=== PATIENT | male | born 1945 | race Caucasian/White ===

== ENCOUNTER 2017-05-17 07:04 | Inpatient (IN) | payer MEDICARE, BC ==
[2017-05-17] MEDS ORDERED: Temazepam 15 MG Cap PO PRN (08:21)
[2017-05-17] MEDS ORDERED: Ondansetron 4 MG Tab.DIS PO PRN (08:21)
[2017-05-17] MEDS ORDERED: Acetaminophen 325 MG Tab PO PRN (08:21)
[2017-05-17] MEDS ORDERED: Magnesium Hydroxide 400 MG/5 ML Susp 30 ML Cup PO PRN (08:21)
[2017-05-17] MEDS ORDERED: Sodium Chloride 0.9% 10 ML Syringe FLUSH PRN (08:21)
[2017-05-17] MEDS: Metolazone 5 MG Tab PO SCH (09:12)
[2017-05-17] MEDS: Furosemide 40 MG/4 ML VIAL IVPUSH SCH (09:13)
[2017-05-17] MEDS ORDERED: Cyclobenzaprine 10 MG Tab PO PRN (12:12)
--- NOTE | 2017-05-17 12:48 | PCM.HP ---
H&P History of Present Illness - General Date of Service: 05/17/17 Admit Problem/Dx: Admission Diagnosis/Problem Admission Diagnosis/Problem Anasarca associated with disorder of kidney Source of Information: Patient History Limitations: Reports: No Limitations - History of Present Illness Initial Comments - Free Text/Narative: Patient admitted direct admit due to anasarca. Has had about a 50# weight gain of fluid over the last several months. Now feeling more short of breath. Swelling has now increased from his legs up through his abdomen. He has noted that his legs are weeping more, uncomfortable. Was seen by Dr. Meyers yesterday who felt he would need to be admitted for IV diuresis as multiple oral medications and changes has not helped. Patient has had ongoing issues with his blood pressure as well. Is on several different meds for this and has many adjustments. Patient denies chest pain. No recent fevers. Onset of Symptoms: Reports: Gradual Duration of Symptoms: Reports: Week(s): Location: Reports: Generalized - Related Data Allergies/Adverse Reactions: Allergies Allergy/AdvReac Type Severity Reaction Status Date / Time No Known Allergies Allergy Verified 05/17/17 07:27 Home Medications: Home Meds Aspirin [Halfprin] 81 mg PO DAILY 05/18/15 [History] Cyclobenzaprine [Flexeril] 10 mg PO TID PRN 05/18/15 [History] Insulin Isophane NPH, Human [HumuLIN N] 45 unit SUBCUT BIDMEALS 05/18/15 [ History] Meloxicam 15 mg PO WITHBREAKFAST 05/18/15 [History] Multivitamin [Tab A Shantell] 1 each PO DAILY 05/18/15 [History] Polyethylene Glycol 3350 [MiraLAX] 17 gm PO DAILY 05/18/15 [History] Rosuvastatin [Crestor] 20 mg PO DAILY 05/18/15 [History] Tamsulosin [Flomax] 0.4 mg PO DAILY 05/18/15 [History] Carvedilol [Coreg] 3.125 mg PO BIDM #60 tablet 05/21/15 [Rx] Isosorbide Mononitrate [Imdur] 60 mg PO DAILY 05/17/17 [History] Losartan Potassium 100 mg PO DAILY 05/17/17 [History] Torsemide 40 mg PO BID 05/17/17 [History] hydrALAZINE HCl [Hydralazine HCl] 25 mg PO BID 05/17/17 [History] Past Medical History HEENT History: Reports: Allergic Rhinitis Cardiovascular History: Reports: Heart Failure, High Cholesterol, Hypertension Respiratory History: Reports: SOB Genitourinary History: Reports: BPH Musculoskeletal History: Reports: Back Pain, Chronic Neurological History: Reports: Neuropathy, Diabetic Endocrine/Metabolic History: Reports: Diabetes, Type II - Past Surgical History Cardiovascular Surgical History: Reports: Other (See Below) Other Cardiovascular Surgeries/Procedures: CABG 5 in 2000 Social & Family History - Tobacco Use Smoking Status *Q: Former Smoker Used Tobacco, but Quit: Yes Month Tobacco Last Used: 32 y.o - Caffeine Use Caffeine Use: Reports: Coffee - Recreational Drug Use Recreational Drug Use: No H&P Review of Systems - Review of Systems: Review Of Systems: See Below General: Reports: Weakness. Denies: Fever, Chills, Malaise HEENT: Reports: No Symptoms Pulmonary: Reports: Shortness of Breath, Wheezing. Denies: Cough Cardiovascular: Reports: Edema. Denies: Chest Pain, Lightheadedness Gastrointestinal: Denies: Abdominal Pain, Black Stool, Bloody Stool, Nausea, Vomiting Genitourinary: Reports: No Symptoms Musculoskeletal: Reports: Leg Pain Skin: Reports: Erythema Psychiatric: Reports: No Symptoms Neurological: Reports: No Symptoms Exam - Exam Exam: See Below - Vital Signs Vital Signs: Last Vital Signs Temp 97.7 F 05/17/17 11:33 Pulse 74 05/17/17 11:33 Resp 16 05/17/17 11:33 BP 150/78 H 05/17/17 11:33 Pulse Ox 94 L 05/17/17 11:33 Weight: 319 lb - Exam General: Alert, Oriented HEENT: EACs Clear, Normal Nasal Septum, Posterior Pharynx Clear Neck: Supple Lungs: Decreased Breath Sounds, Wheezing Cardiovascular: Irregular Rhythm GI/Abdominal Exam: Normal Bowel Sounds, Soft, Non-Tender Extremities: Pedal Edema (4+ edema, legs weeping, red) Skin: Warm, Other (multiple open weeping areas on his legs) Neuro Extensive - Mental Status: Alert, Oriented x3 Psychiatric: Alert, Normal Affect, Normal Mood - Patient Data Lab Results Last 24 hrs: Laboratory Results - last 24 hr 05/17/17 05/17/17 05/17/17 Range/Units 09:10 09:10 11:19 WBC 6.3 (5.0-10.0) 10^3/uL RBC 4.57 (4.50-6.00) 10^6/uL Hgb 13.5 L (14.0-18.0) g/dL Hct 42.9 (40.0-54.0) % MCV 93.9 (82.0-94.0) fL MCH 29.5 (27.0-32.0) pg MCHC 31.5 L (33.0-38.0) g/dL RDW Coeff of Ashley 17.6 H (11.0-15.0) % Plt Count 120 L (150-400) 10^3/uL Neut % (Auto) 80.1 (35-85) % Lymph % (Auto) 8.1 L (10-55) % [place] % (Auto) 9.6 (0-16) % Eos % (Auto) 1.9 (0-5) % Baso % (Auto) 0.3 (0-3) % Neut # (Auto) 5.03 (1.80-7.00) 10^3/uL Lymph # (Auto) 0.51 L (1.00-4.80) 10^3/uL [place] # (Auto) 0.60 (0.00-0.80) 10^3/uL Eos # (Auto) 0.12 (0.00-0.45) 10^3/uL Baso # (Auto) 0.02 10^3/uL Sodium 143 (136-145) mEq/L Potassium 4.3 (3.5-5.0) mEq/L Chloride 103 (98-106) mEq/L Carbon Dioxide 35 H (21-32) mmol/L BUN 34 H (7-18) mg/dL Creatinine 2.0 H (0.7-1.3) mg/dL Est Cr Clr Drug Dosing 37.13 mL/min Estimated GFR (MDRD) 33 L (>=60) mL/min Glucose 120 H (75-99) mg/dL POC Glucose 165 H (75-105) mg/dl Calcium 9.0 (8.4-10.1) mg/dL Total Bilirubin 2.8 H (0.0-1.0) mg/dL AST 17 (15-37) U/L ALT 21 (12-78) U/L Alkaline Phosphatase 88 (46-116) U/L NT-Pro-B Natriuret Pep 3619 H (0-1000) pg/mL Total Protein 7.5 (6.4-8.2) g/dL Albumin 3.7 (3.4-5.0) g/dL Result Diagrams: 05/17/17 09:10 05/17/17 09:10 EKG INTERPRETATION Rhythm: A-Fib *Q Meaningful Use (ADM) - VTE *Q VTE Criteria *Q: - Stroke *Q Stroke Criteria *Q: - AMI *Q AMI Criteria *Q: - Problem List (1) Anasarca SNOMED Code(s): 381289688, 616940011 ICD Code: R60.1 - GENERALIZED EDEMA Status: Acute Priority: High Current Visit: Yes (2) CHF exacerbation SNOMED Code(s): 47780211 ICD Code: I50.9 - HEART FAILURE, UNSPECIFIED Status: Acute Priority: High Current Visit: No Qualifiers: Congestive heart failure type: systolic Qualified Code(s): I50.23 - Acute on chronic systolic (congestive) heart failure Problem List Initiated/Reviewed/Updated: Yes Orders Last 24hrs: Active Orders 24 hr Category Date Time Status Patient Status [ADT] Routine ADT 05/17/17 08:21 Active Cardiac Monitoring [RC] 0800,1999 Care 05/17/17 08:24 Active Height and Weight [RC] 0600 Care 05/17/17 08:21 Active Oxygen Therapy [RC] .PRN Care 05/17/17 08:21 Active Up to Chair [RC] .PRN Care 05/17/17 08:21 Active Vital Signs [RC] 0000,0400,0800,1200,1600,1999 Care 05/17/17 08:21 Active Consult to Physical Therapy [PT Evaluation and Cons 05/17/17 08:42 Active Treatment] [CONS] Routine 2 Gram Sodium Diet [DIET] Diet 05/17/17 Breakfast Active Chest 2V [CR] Stat Exams 05/17/17 08:21 Taken Chest wo Cont [CT] Routine Exams 05/17/17 12:33 Ordered BASIC METABOLIC PANEL,BMP [CHEM] AM Lab 05/18/17 05:11 Ordered CBC WITH AUTO DIFF [HEME] AM Lab 05/18/17 05:11 Ordered Acetaminophen [Tylenol] Med 05/17/17 08:21 Active 650 mg PO Q4H PRN Aspirin [Halfprin] Med 05/18/17 08:00 Active 81 mg PO DAILY Carvedilol [Coreg] Med 05/17/17 17:30 Active 3.125 mg PO BIDM Cyclobenzaprine [Flexeril] Med 05/17/17 12:12 Active 10 mg PO TID PRN Furosemide [Lasix] Med 05/17/17 08:30 Active 40 mg IVPUSH Q24H Insulin Detemir [Levemir] Med 05/17/17 20:00 Active 45 unit SUBCUT BID Isosorbide Mononitrate [Imdur] Med 05/17/17 12:15 Active 60 mg PO DAILY Losartan [Cozaar] Med 05/17/17 12:15 Active 100 mg PO DAILY Magnesium Hydroxide [Milk of Magnesia] Med 05/17/17 08:21 Active 30 ml PO Q12H PRN Meloxicam [Mobic] Med 05/18/17 08:00 Active 15 mg PO WITHBREAKFAST Metolazone [Zaroxolyn] Med 05/17/17 08:30 Active 5 mg PO MOWEFR Multivitamins [Tab-A-Shantell] Med 05/18/17 08:00 Active 1 tab PO DAILY Ondansetron [Zofran ODT] Med 05/17/17 08:21 Active 4 mg PO Q4H PRN Polyethylene Glycol 3350 [MiraLAX] Med 05/18/17 08:00 Active 17 gm PO DAILY Simvastatin [Zocor] Med 05/17/17 20:00 Active 80 mg PO BEDTIME Sodium Chloride 0.9% [Saline Flush] Med 05/17/17 08:21 Active 10 ml FLUSH ASDIRECTED PRN Tamsulosin [Flomax] Med 05/18/17 08:00 Active 0.4 mg PO DAILY Temazepam [Restoril] Med 05/17/17 08:21 Active 15 mg PO BEDTIME PRN hydrALAZINE [Apresoline] Med 05/17/17 20:00 Active 25 mg PO BID Saline Lock Insert [OM.PC] Routine Oth 05/17/17 08:21 Ordered Resuscitation Status Routine Resus Stat 05/17/17 08:21 Ordered Medication Orders Acetaminophen (Tylenol) 650 mg PO Q4H PRN PRN Reason: Pain (Mild 1-3)/fever Aspirin (Halfprin) 81 mg PO DAILY [facility] Carvedilol (Coreg) 3.125 mg PO BIDM [facility] Cyclobenzaprine HCl (Flexeril) 10 mg PO TID PRN PRN Reason: Spasms Furosemide (Lasix) 40 mg IVPUSH Q24H [facility] Last Admin: 05/17/17 09:13 Dose: 40 mg Hydralazine HCl (Apresoline) 25 mg PO BID [facility] Insulin Detemir (Levemir) 45 unit SUBCUT BID [facility] Isosorbide Mononitrate (Imdur) 60 mg PO DAILY [facility] Losartan Potassium (Cozaar) 100 mg PO DAILY [facility] Magnesium Hydroxide (Milk Of Magnesia) 30 ml PO Q12H PRN PRN Reason: Constipation Meloxicam (Mobic) 15 mg PO WITHBREAKFAST [facility] Metolazone (Zaroxolyn) 5 mg PO MOWEFR [facility] Last Admin: 05/17/17 09:12 Dose: 5 mg Multivitamins/Minerals/Vitamin C (Tab-A-Shantell) 1 tab PO DAILY [facility] Ondansetron HCl (Zofran Odt) 4 mg PO Q4H PRN PRN Reason: nausea, able to take PO Polyethylene Glycol (Miralax) 17 gm PO DAILY [facility] Simvastatin (Zocor) 80 mg PO BEDTIME [facility] Sodium Chloride (Saline Flush) 10 ml FLUSH ASDIRECTED PRN PRN Reason: Keep Vein Open Tamsulosin HCl (Flomax) 0.4 mg PO DAILY [facility] Temazepam (Restoril) 15 mg PO BEDTIME PRN PRN Reason: Sleep Assessment/Plan Comment:: Labs ordered. Echocardiogram ordered. CXR. IV Lasix with metolazone prior. Will have PT evaluate for legs/weeping.
[2017-05-17] MEDS: Losartan 100 MG Tab PO SCH (12:55)
[2017-05-17] MEDS: Isosorbide Mononitrate 30 MG Tab.ER PO SCH (12:55)
[2017-05-17] MEDS: Enoxaparin 40 MG/0.4 ML Syringe SUBCUT SCH ×2 (12:56→13:00)
[2017-05-17] MEDS: Carvedilol 3.125 MG Tab PO SCH (17:18)
[2017-05-17] MEDS ORDERED: Insulin Detemir 100 Units/ML 3 ML Pen ONE (17:24)
[2017-05-17] MEDS: Simvastatin 40 MG Tab PO SCH (20:31)
[2017-05-17] MEDS: Insulin Detemir 100 Units/ML 3 ML Pen SUBCUT SCH (20:32)
[2017-05-17] MEDS: hydrALAZINE 25 MG Tab PO SCH (20:32)
[2017-05-18] MEDS: Losartan 100 MG Tab PO SCH (08:04)
[2017-05-18] MEDS: Carvedilol 3.125 MG Tab PO SCH ×2 (08:04→17:29)
[2017-05-18] MEDS: Aspirin 81 MG Tab.EC PO SCH (08:05)
[2017-05-18] MEDS: hydrALAZINE 25 MG Tab PO SCH ×2 (08:05→19:33)
[2017-05-18] MEDS: Tamsulosin 0.4 MG Cap.ER PO SCH (08:05)
[2017-05-18] MEDS: Isosorbide Mononitrate 30 MG Tab.ER PO SCH (08:05)
[2017-05-18] MEDS: Polyethylene Glycol 3350 Powder 17 GM Packet PO SCH (08:05)
[2017-05-18] MEDS: Meloxicam 7.5 MG Tab PO SCH (08:05)
[2017-05-18] MEDS: Multivitamin Tab PO SCH (08:05)
[2017-05-18] MEDS: Furosemide 40 MG/4 ML VIAL IVPUSH SCH ×2 (08:08→14:00)
[2017-05-18] MEDS: Insulin Detemir 100 Units/ML 3 ML Pen SUBCUT SCH ×2 (08:11→19:35)
--- NOTE | 2017-05-18 10:59 | PCM.PN ---
- General Info Date of Service: 05/18/17 Admission Dx/Problem (Free Text): Admission Diagnosis/Problem Admission Diagnosis/Problem Anasarca associated with disorder of kidney Functional Status: Reports: Pain Controlled, Tolerating Diet, Ambulating - Review of Systems General: Reports: Fatigue. Denies: Fever, Weakness HEENT: Reports: No Symptoms Pulmonary: Reports: Shortness of Breath. Denies: Cough, Wheezing Cardiovascular: Reports: Edema. Denies: Chest Pain, Lightheadedness Gastrointestinal: Denies: Abdominal Pain, Nausea, Vomiting Genitourinary: Reports: No Symptoms Musculoskeletal: Reports: Leg Pain Skin: Reports: Other (UNNA boots on now due to fluid overload and open areas weeping) Neurological: Reports: No Symptoms Psychiatric: Reports: No Symptoms - Patient Data Vitals - Most Recent: Last Vital Signs Temp 96.3 F 05/18/17 07:56 Pulse 70 05/18/17 08:04 Resp 16 05/18/17 07:56 BP 148/85 H 05/18/17 08:05 Pulse Ox 93 L 05/18/17 07:56 Weight - Most Recent: 315 lb 3.2 oz I&O - Last 24 Hours: Intake & Output 05/17/17 05/18/17 05/18/17 22:59 06:59 14:59 Intake Total 900 745 200 Output Total 1480 2280 Balance -580 -1535 200 Lab Results Last 24 Hours: Laboratory Results - last 24 hr 05/17/17 05/17/17 05/17/17 Range/Units 11:19 17:06 20:33 WBC (5.0-10.0) 10^3/uL RBC (4.50-6.00) 10^6/uL Hgb (14.0-18.0) g/dL Hct (40.0-54.0) % MCV (82.0-94.0) fL MCH (27.0-32.0) pg MCHC (33.0-38.0) g/dL RDW Coeff of Ashley (11.0-15.0) % Plt Count (150-400) 10^3/uL Neut % (Auto) (35-85) % Lymph % (Auto) (10-55) % [place] % (Auto) (0-16) % Eos % (Auto) (0-5) % Baso % (Auto) (0-3) % Neut # (Auto) (1.80-7.00) 10^3/uL Lymph # (Auto) (1.00-4.80) 10^3/uL [place] # (Auto) (0.00-0.80) 10^3/uL Eos # (Auto) (0.00-0.45) 10^3/uL Baso # (Auto) 10^3/uL Sodium (136-145) mEq/L Potassium (3.5-5.0) mEq/L Chloride (98-106) mEq/L Carbon Dioxide (21-32) mmol/L BUN (7-18) mg/dL Creatinine (0.7-1.3) mg/dL Est Cr Clr Drug Dosing mL/min Estimated GFR (MDRD) (>=60) mL/min Glucose (75-99) mg/dL POC Glucose 165 H 208 H 274 H (75-105) mg/dl Calcium (8.4-10.1) mg/dL 05/18/17 05/18/17 05/18/17 Range/Units 06:50 06:50 07:45 WBC 5.7 (5.0-10.0) 10^3/uL RBC 4.31 L (4.50-6.00) 10^6/uL Hgb 12.7 L (14.0-18.0) g/dL Hct 40.4 (40.0-54.0) % MCV 93.7 (82.0-94.0) fL MCH 29.5 (27.0-32.0) pg MCHC 31.4 L (33.0-38.0) g/dL RDW Coeff of [place] 17.7 H (11.0-15.0) % Plt Count 128 L (150-400) 10^3/uL Neut % (Auto) 68.2 (35-85) % Lymph % (Auto) 14.6 (10-55) % [place] % (Auto) 14.2 (0-16) % Eos % (Auto) 2.5 (0-5) % Baso % (Auto) 0.5 (0-3) % Neut # (Auto) 3.89 (1.80-7.00) 10^3/uL Lymph # (Auto) 0.83 L (1.00-4.80) 10^3/uL [place] # (Auto) 0.81 H (0.00-0.80) 10^3/uL Eos # (Auto) 0.14 (0.00-0.45) 10^3/uL Baso # (Auto) 0.03 10^3/uL Sodium 143 (136-145) mEq/L Potassium 3.6 (3.5-5.0) mEq/L Chloride 103 (98-106) mEq/L Carbon Dioxide 35 H (21-32) mmol/L BUN 34 H (7-18) mg/dL Creatinine 1.9 H (0.7-1.3) mg/dL Est Cr Clr Drug Dosing 39.08 mL/min Estimated GFR (MDRD) 35 L (>=60) mL/min Glucose 169 H D (75-99) mg/dL POC Glucose 158 H (75-105) mg/dl Calcium 8.6 (8.4-10.1) mg/dL Med Orders - Current: Current Medications Acetaminophen (Tylenol) 650 mg PO Q4H PRN PRN Reason: Pain (Mild 1-3)/fever Aspirin (Halfprin) 81 mg PO DAILY [facility] Last Admin: 05/18/17 08:05 Dose: 81 mg Carvedilol (Coreg) 3.125 mg PO BIDM [facility] Last Admin: 05/18/17 08:04 Dose: 3.125 mg Cyclobenzaprine HCl (Flexeril) 10 mg PO TID PRN PRN Reason: Spasms Furosemide (Lasix) 40 mg IVPUSH DAILY@0800,1400 [facility] Hydralazine HCl (Apresoline) 25 mg PO BID [facility] Last Admin: 05/18/17 08:05 Dose: 25 mg Insulin Detemir (Levemir) 45 unit SUBCUT BID [facility] Last Admin: 05/18/17 08:11 Dose: 45 units Isosorbide Mononitrate (Imdur) 60 mg PO DAILY [facility] Last Admin: 05/18/17 08:05 Dose: 60 mg Losartan Potassium (Cozaar) 100 mg PO DAILY [facility] Last Admin: 05/18/17 08:04 Dose: 100 mg Magnesium Hydroxide (Milk Of Magnesia) 30 ml PO Q12H PRN PRN Reason: Constipation Meloxicam (Mobic) 15 mg PO WITHBREAKFAST [facility] Last Admin: 05/18/17 08:05 Dose: 15 mg Metolazone (Zaroxolyn) 5 mg PO MOWEFR [facility] Last Admin: 05/17/17 09:12 Dose: 5 mg Multivitamins/Minerals/Vitamin C (Tab-A-Shantell) 1 tab PO DAILY [facility] Last Admin: 05/18/17 08:05 Dose: 1 tab Non-Formulary Medication (Nf Drug) 1 each PO DAILY [facility] Ondansetron HCl (Zofran Odt) 4 mg PO Q4H PRN PRN Reason: nausea, able to take PO Polyethylene Glycol (Miralax) 17 gm PO DAILY [facility] Last Admin: 05/18/17 08:05 Dose: 17 gm Simvastatin (Zocor) 80 mg PO BEDTIME [facility] Last Admin: 05/17/17 20:31 Dose: 80 mg Sodium Chloride (Saline Flush) 10 ml FLUSH ASDIRECTED PRN PRN Reason: Keep Vein Open Tamsulosin HCl (Flomax) 0.4 mg PO DAILY [facility] Last Admin: 05/18/17 08:05 Dose: 0.4 mg Temazepam (Restoril) 15 mg PO BEDTIME PRN PRN Reason: Sleep Discontinued Medications Enoxaparin Sodium (Lovenox) 40 mg SUBCUT Q24H [facility] Last Admin: 05/17/17 13:00 Dose: 40 mg Furosemide (Lasix) 40 mg IVPUSH Q24H [facility] Last Admin: 05/18/17 08:08 Dose: 40 mg Furosemide (Lasix) 40 mg IVPUSH BID [facility] Insulin Detemir (Levemir) Confirm Administered Dose 300 unit .ROUTE .STK-MED ONE Stop: 05/17/17 17:25 Last Admin: 05/17/17 17:19 Dose: Not Given - Exam General: Alert, Oriented HEENT: Mucous Membr. Moist/[place] Neck: Supple Lungs: Decreased Breath Sounds Cardiovascular: Irregular Rhythm GI/Abdominal Exam: Normal Bowel Sounds, Soft, Non-Tender Extremities: Pedal Edema (Significant edema yet in his lower extremities. UNNA boots intact. Discomfort with palpation. ) Neurological: No New Focal Deficit Psy/Mental Status: Alert, Normal Affect, Normal Mood - Problem List & Annotations (1) Anasarca SNOMED Code(s): 319149024, 093834697 Code(s): R60.1 - GENERALIZED EDEMA Status: Acute Priority: High Current Visit: Yes (2) CHF exacerbation SNOMED Code(s): 72434782 Code(s): I50.9 - HEART FAILURE, UNSPECIFIED Status: Acute Priority: High Current Visit: No Qualifiers: Congestive heart failure type: systolic Qualified Code(s): I50.23 - Acute on chronic systolic (congestive) heart failure - Problem List Review Problem List Initiated/Reviewed/Updated: Yes - My Orders Last 24 Hours: My Active Orders 05/17/17 12:12 Cyclobenzaprine [Flexeril] 10 mg PO TID PRN 05/17/17 12:15 Isosorbide Mononitrate [Imdur] 60 mg PO DAILY Losartan [Cozaar] 100 mg PO DAILY 05/17/17 12:33 Chest wo Cont [CT] Routine 05/17/17 17:30 Carvedilol [Coreg] 3.125 mg PO BIDM Non-Formulary Medication [NF Drug] 1 each PO DAILY 05/17/17 20:00 Insulin Detemir [Levemir] 45 unit SUBCUT BID Simvastatin [Zocor] 80 mg PO BEDTIME hydrALAZINE [Apresoline] 25 mg PO BID 05/18/17 08:00 Aspirin [Halfprin] 81 mg PO DAILY Meloxicam [Mobic] 15 mg PO WITHBREAKFAST Multivitamins [Tab-A-Shantell] 1 tab PO DAILY Polyethylene Glycol 3350 [MiraLAX] 17 gm PO DAILY Tamsulosin [Flomax] 0.4 mg PO DAILY 05/18/17 14:00 Furosemide [Lasix] 40 mg IVPUSH DAILY@0800,1400 05/19/17 05:11 BMP [BASIC METABOLIC PANEL,BMP] [CHEM] DAILY 05/20/17 05:11 BMP [BASIC METABOLIC PANEL,BMP] [CHEM] DAILY 05/21/17 05:11 BMP [BASIC METABOLIC PANEL,BMP] [CHEM] DAILY - Assessment Assessment:: Anasarca Acute on chronic systolic CHF - Plan Plan:: Labs ordered. Echocardiogram ordered. CXR. IV Lasix with metolazone prior. Will have PT evaluate for legs/weeping. 05-18-2017 Patient states feeling somewhat less short of breath today. Is up to bathroom unassisted and tolerates well. Sats remain about 92% on room air. Continues to have 4+ edema in lower extremities. UNNA boots intact. Lung sounds note to have better air movement and less wheezing but still diminished. He is down 4# today. States did have good diuresis after the Lasix yesterday but slowed down within hours after. CT scan was done yesterday afternoon of chest and showed pleural effusions, no lesions. Awaiting echocardiogram. New onset atrial fib noted by EKG so Xarelto started yesterday. Will adjust Xarelto dose due to renal function to 15 mg. Creatinine stable at 1.9. Will increase Lasix to BID this weekend. Continue monitoring blood sugars, blood pressures and weights. Reevalute in am.
[2017-05-18] MEDS: RIVAROXABAN 15 MG PO SCH (17:29)
[2017-05-18] MEDS: Simvastatin 40 MG Tab PO SCH (19:33)
[2017-05-18] MEDS ORDERED: Furosemide 40 MG/4 ML VIAL IVPUSH SCH (20:00)
[2017-05-19] MEDS: Furosemide 40 MG/4 ML VIAL IVPUSH SCH ×2 (07:49→13:49)
[2017-05-19] MEDS: hydrALAZINE 25 MG Tab PO SCH ×2 (07:54→19:26)
[2017-05-19] MEDS: Carvedilol 3.125 MG Tab PO SCH ×2 (07:54→17:12)
[2017-05-19] MEDS: Aspirin 81 MG Tab.EC PO SCH (07:55)
[2017-05-19] MEDS: Tamsulosin 0.4 MG Cap.ER PO SCH (07:55)
[2017-05-19] MEDS: Isosorbide Mononitrate 30 MG Tab.ER PO SCH (07:55)
[2017-05-19] MEDS: Losartan 100 MG Tab PO SCH (07:55)
[2017-05-19] MEDS: Multivitamin Tab PO SCH (07:56)
[2017-05-19] MEDS: Meloxicam 7.5 MG Tab PO SCH (07:56)
[2017-05-19] MEDS: Polyethylene Glycol 3350 Powder 17 GM Packet PO SCH (07:56)
[2017-05-19] MEDS: Insulin Detemir 100 Units/ML 3 ML Pen SUBCUT SCH ×2 (07:58→19:30)
--- NOTE | 2017-05-19 11:05 | PCM.PN ---
- General Info Date of Service: 05/19/17 Admission Dx/Problem (Free Text): Admission Diagnosis/Problem Admission Diagnosis/Problem Anasarca associated with disorder of kidney Functional Status: Reports: Pain Controlled, Tolerating Diet, Ambulating - Review of Systems General: Denies: Fever, Weakness, Fatigue HEENT: Reports: No Symptoms Pulmonary: Reports: Shortness of Breath. Denies: Cough, Wheezing Cardiovascular: Reports: Edema. Denies: Chest Pain, Lightheadedness Gastrointestinal: Denies: Abdominal Pain, Nausea, Vomiting Genitourinary: Reports: No Symptoms Musculoskeletal: Reports: No Symptoms Skin: Reports: No Symptoms Neurological: Reports: No Symptoms - Patient Data Vitals - Most Recent: Last Vital Signs Temp 96.7 F 05/19/17 07:55 Pulse 67 05/19/17 07:55 Resp 18 05/19/17 07:55 BP 149/85 H 05/19/17 07:55 Pulse Ox 93 L 05/19/17 07:55 Weight - Most Recent: 310 lb I&O - Last 24 Hours: Intake & Output 05/18/17 05/19/17 05/19/17 22:59 06:59 14:59 Intake Total 560 300 Output Total 1050 1020 400 Balance -490 -720 -400 Lab Results Last 24 Hours: Laboratory Results - last 24 hr 05/18/17 05/18/17 05/18/17 Range/Units 11:30 17:15 20:22 Sodium (136-145) mEq/L Potassium (3.5-5.0) mEq/L Chloride (98-106) mEq/L Carbon Dioxide (21-32) mmol/L BUN (7-18) mg/dL Creatinine (0.7-1.3) mg/dL Est Cr Clr Drug Dosing mL/min Estimated GFR (MDRD) (>=60) mL/min Glucose (75-99) mg/dL POC Glucose 283 H 218 H 256 H (75-105) mg/dl Calcium (8.4-10.1) mg/dL 05/19/17 Range/Units 07:00 Sodium 145 (136-145) mEq/L Potassium 3.5 (3.5-5.0) mEq/L Chloride 104 (98-106) mEq/L Carbon Dioxide 37 H (21-32) mmol/L BUN 33 H (7-18) mg/dL Creatinine 1.9 H (0.7-1.3) mg/dL Est Cr Clr Drug Dosing 39.08 mL/min Estimated GFR (MDRD) 35 L (>=60) mL/min Glucose 85 D (75-99) mg/dL POC Glucose (75-105) mg/dl Calcium 9.3 (8.4-10.1) mg/dL Med Orders - Current: Current Medications Acetaminophen (Tylenol) 650 mg PO Q4H PRN PRN Reason: Pain (Mild 1-3)/fever Aspirin (Halfprin) 81 mg PO DAILY [facility] Last Admin: 05/19/17 07:55 Dose: 81 mg Carvedilol (Coreg) 3.125 mg PO BIDM [facility] Last Admin: 05/19/17 07:54 Dose: 3.125 mg Cyclobenzaprine HCl (Flexeril) 10 mg PO TID PRN PRN Reason: Spasms Furosemide (Lasix) 40 mg IVPUSH DAILY@0800,1400 [facility] Last Admin: 05/19/17 07:49 Dose: 40 mg Hydralazine HCl (Apresoline) 25 mg PO BID [facility] Last Admin: 05/19/17 07:54 Dose: 25 mg Insulin Detemir (Levemir) 45 unit SUBCUT BID [facility] Last Admin: 05/19/17 07:58 Dose: 45 units Isosorbide Mononitrate (Imdur) 60 mg PO DAILY [facility] Last Admin: 05/19/17 07:55 Dose: 60 mg Losartan Potassium (Cozaar) 100 mg PO DAILY [facility] Last Admin: 05/19/17 07:55 Dose: 100 mg Magnesium Hydroxide (Milk Of Magnesia) 30 ml PO Q12H PRN PRN Reason: Constipation Meloxicam (Mobic) 15 mg PO WITHBREAKFAST [facility] Last Admin: 05/19/17 07:56 Dose: 15 mg Metolazone (Zaroxolyn) 5 mg PO MOWEFR [facility] Last Admin: 05/17/17 09:12 Dose: 5 mg Multivitamins/Minerals/Vitamin C (Tab-A-Shantell) 1 tab PO DAILY [facility] Last Admin: 05/19/17 07:56 Dose: 1 tab Rivaroxaban (Xarelto () 15mgOwn Med) 1 each PO DAILY@1800 [facility] Last Admin: 09/09/17 17:29 Dose: 1 each Ondansetron HCl (Zofran Odt) 4 mg PO Q4H PRN PRN Reason: nausea, able to take PO Polyethylene Glycol (Miralax) 17 gm PO DAILY [facility] Last Admin: 05/19/17 07:56 Dose: 17 gm Simvastatin (Zocor) 80 mg PO BEDTIME [facility] Last Admin: 05/18/17 19:33 Dose: 80 mg Sodium Chloride (Saline Flush) 10 ml FLUSH ASDIRECTED PRN PRN Reason: Keep Vein Open Tamsulosin HCl (Flomax) 0.4 mg PO DAILY [facility] Last Admin: 05/19/17 07:55 Dose: 0.4 mg Temazepam (Restoril) 15 mg PO BEDTIME PRN PRN Reason: Sleep Discontinued Medications Enoxaparin Sodium (Lovenox) 40 mg SUBCUT Q24H [facility] Last Admin: 05/17/17 13:00 Dose: 40 mg Furosemide (Lasix) 40 mg IVPUSH Q24H [facility] Last Admin: 05/18/17 08:08 Dose: 40 mg Furosemide (Lasix) 40 mg IVPUSH BID [facility] Insulin Detemir (Levemir) Confirm Administered Dose 300 unit .ROUTE .STK-MED ONE Stop: 05/17/17 17:25 Last Admin: 05/17/17 17:19 Dose: Not Given - Exam General: Alert, Oriented HEENT: Mucous Membr. Moist/[place] Neck: Supple Lungs: Decreased Breath Sounds Cardiovascular: Irregular Rhythm GI/Abdominal Exam: Normal Bowel Sounds, Soft, Non-Tender Extremities: Normal Inspection, Pedal Edema (3-4+ edema, UNNA boots intact. ) - Problem List & Annotations (1) Anasarca SNOMED Code(s): 644127495, 560201528 Code(s): R60.1 - GENERALIZED EDEMA Status: Acute Priority: High Current Visit: Yes (2) CHF exacerbation SNOMED Code(s): 82517637 Code(s): I50.9 - HEART FAILURE, UNSPECIFIED Status: Acute Priority: High Current Visit: No Qualifiers: Congestive heart failure type: systolic Qualified Code(s): I50.23 - Acute on chronic systolic (congestive) heart failure - Problem List Review Problem List Initiated/Reviewed/Updated: Yes - My Orders Last 24 Hours: My Active Orders 05/18/17 14:00 Furosemide [Lasix] 40 mg IVPUSH DAILY@0800,1400 05/18/17 18:00 Non-Formulary Medication [NF Drug] 1 each PO DAILY@1800 05/20/17 05:11 BMP [BASIC METABOLIC PANEL,BMP] [CHEM] DAILY 05/21/17 05:11 BMP [BASIC METABOLIC PANEL,BMP] [CHEM] DAILY - Assessment Assessment:: Anasarca Acute on chronic systolic CHF - Plan Plan:: Labs ordered. Echocardiogram ordered. CXR. IV Lasix with metolazone prior. Will have PT evaluate for legs/weeping. 05-18-2017 Patient states feeling somewhat less short of breath today. Is up to bathroom unassisted and tolerates well. Sats remain about 92% on room air. Continues to have 4+ edema in lower extremities. UNNA boots intact. Lung sounds note to have better air movement and less wheezing but still diminished. He is down 4# today. States did have good diuresis after the Lasix yesterday but slowed down within hours after. CT scan was done yesterday afternoon of chest and showed pleural effusions, no lesions. Awaiting echocardiogram. New onset atrial fib noted by EKG so Xarelto started yesterday. Will adjust Xarelto dose due to renal function to 15 mg. Creatinine stable at 1.9. Will increase Lasix to BID this weekend. Continue monitoring blood sugars, blood pressures and weights. Reevalute in am. 05-19-2017 Patient is feeling better. Admits that breathing is easier today. Down 9# since admission. Patient states abdomen is down and legs less taut. Blood pressure is better. BMP is stable, creatinine remains 1.9. Will continue with IV Lasix. Xarelto for atrial fib. Keep legs elevated. Monitor weights and output. Possible swing bed in am.
[2017-05-19] MEDS: RIVAROXABAN 15 MG PO SCH (17:14)
[2017-05-19] MEDS: Simvastatin 40 MG Tab PO SCH (19:26)
[2017-05-20] MEDS: Polyethylene Glycol 3350 Powder 17 GM Packet PO SCH (07:21)
[2017-05-20] MEDS: Furosemide 40 MG/4 ML VIAL IVPUSH SCH ×2 (07:22→13:53)
[2017-05-20] MEDS: Aspirin 81 MG Tab.EC PO SCH (07:26)
[2017-05-20] MEDS: Tamsulosin 0.4 MG Cap.ER PO SCH (07:26)
[2017-05-20] MEDS: Meloxicam 7.5 MG Tab PO SCH (07:26)
[2017-05-20] MEDS: Multivitamin Tab PO SCH (07:27)
[2017-05-20] MEDS: hydrALAZINE 25 MG Tab PO SCH ×2 (07:30→19:28)
[2017-05-20] MEDS: Carvedilol 3.125 MG Tab PO SCH ×2 (07:33→17:14)
[2017-05-20] MEDS: Losartan 100 MG Tab PO SCH (07:34)
[2017-05-20] MEDS: Isosorbide Mononitrate 30 MG Tab.ER PO SCH (07:35)
[2017-05-20] MEDS: Insulin Detemir 100 Units/ML 3 ML Pen SUBCUT SCH ×2 (08:00→19:37)
[2017-05-20] MEDS: Metolazone 5 MG Tab PO SCH (08:02)
--- NOTE | 2017-05-20 13:24 | PCM.PN ---
- General Info Date of Service: 05/20/17 Admission Dx/Problem (Free Text): Admission Diagnosis/Problem Admission Diagnosis/Problem Anasarca associated with disorder of kidney Functional Status: Reports: Pain Controlled, Tolerating Diet, Ambulating - Review of Systems General: Denies: Fever, Weakness, Fatigue, Malaise HEENT: Reports: No Symptoms Pulmonary: Reports: Shortness of Breath (is much improved). Denies: Cough, Wheezing Cardiovascular: Reports: Edema. Denies: Chest Pain, Lightheadedness Gastrointestinal: Denies: Abdominal Pain, Nausea, Vomiting Genitourinary: Reports: No Symptoms Musculoskeletal: Reports: No Symptoms Skin: Reports: Other (UNNA boots intact to lower extremities) Neurological: Reports: No Symptoms Psychiatric: Reports: No Symptoms - Patient Data Vitals - Most Recent: Last Vital Signs Temp 96.7 F 05/20/17 11:23 Pulse 79 05/20/17 11:23 Resp 20 05/20/17 11:23 BP 154/92 H 05/20/17 11:23 Pulse Ox 94 L 05/20/17 11:23 Weight - Most Recent: 306 lb 12.8 oz I&O - Last 24 Hours: Intake & Output 05/19/17 05/20/17 05/20/17 22:59 06:59 14:59 Intake Total 1520 200 800 Output Total 1350 1560 1700 Balance 170 -1360 -900 Lab Results Last 24 Hours: Laboratory Results - last 24 hr 05/19/17 05/20/17 05/20/17 Range/Units 20:19 06:55 07:29 Sodium 144 (136-145) mEq/L Potassium 3.2 L (3.5-5.0) mEq/L Chloride 104 (98-106) mEq/L Carbon Dioxide 35 H (21-32) mmol/L BUN 37 H (7-18) mg/dL Creatinine 2.0 H (0.7-1.3) mg/dL Est Cr Clr Drug Dosing 37.13 mL/min Estimated GFR (MDRD) 33 L (>=60) mL/min Glucose 64 L (75-99) mg/dL POC Glucose 207 H 61 L (75-105) mg/dl Calcium 9.3 (8.4-10.1) mg/dL 05/20/17 Range/Units 11:12 Sodium (136-145) mEq/L Potassium (3.5-5.0) mEq/L Chloride (98-106) mEq/L Carbon Dioxide (21-32) mmol/L BUN (7-18) mg/dL Creatinine (0.7-1.3) mg/dL Est Cr Clr Drug Dosing mL/min Estimated GFR (MDRD) (>=60) mL/min Glucose (75-99) mg/dL POC Glucose 163 H (75-105) mg/dl Calcium (8.4-10.1) mg/dL Med Orders - Current: Current Medications Acetaminophen (Tylenol) 650 mg PO Q4H PRN PRN Reason: Pain (Mild 1-3)/fever Aspirin (Halfprin) 81 mg PO DAILY [facility] Last Admin: 05/20/17 07:26 Dose: 81 mg Carvedilol (Coreg) 3.125 mg PO BIDM [facility] Last Admin: 05/20/17 07:33 Dose: 3.125 mg Cyclobenzaprine HCl (Flexeril) 10 mg PO TID PRN PRN Reason: Spasms Furosemide (Lasix) 40 mg IVPUSH DAILY@0800,1400 [facility] Last Admin: 05/20/17 07:22 Dose: 40 mg Hydralazine HCl (Apresoline) 25 mg PO BID [facility] Last Admin: 05/20/17 07:30 Dose: 25 mg Insulin Detemir (Levemir) 45 unit SUBCUT BID [facility] Last Admin: 05/20/17 08:00 Dose: 45 units Isosorbide Mononitrate (Imdur) 60 mg PO DAILY [facility] Last Admin: 05/20/17 07:35 Dose: 60 mg Losartan Potassium (Cozaar) 100 mg PO DAILY [facility] Last Admin: 05/20/17 07:34 Dose: 100 mg Magnesium Hydroxide (Milk Of Magnesia) 30 ml PO Q12H PRN PRN Reason: Constipation Meloxicam (Mobic) 15 mg PO WITHBREAKFAST [facility] Last Admin: 05/20/17 07:26 Dose: 15 mg Metolazone (Zaroxolyn) 5 mg PO MOWEFR [facility] Last Admin: 05/20/17 08:02 Dose: 5 mg Multivitamins/Minerals/Vitamin C (Tab-A-Shantell) 1 tab PO DAILY [facility] Last Admin: 05/20/17 07:27 Dose: 1 tab Rivaroxaban (Xarelto () 15mgOwn Med) 1 each PO DAILY@1800 [facility] Last Admin: 05/19/17 17:14 Dose: 1 each Ondansetron HCl (Zofran Odt) 4 mg PO Q4H PRN PRN Reason: nausea, able to take PO Polyethylene Glycol (Miralax) 17 gm PO DAILY [facility] Last Admin: 05/20/17 07:21 Dose: 17 gm Potassium Chloride (Klor-Con 10) 20 meq PO BIDMEALS [facility] Simvastatin (Zocor) 80 mg PO BEDTIME [facility] Last Admin: 05/19/17 19:26 Dose: 80 mg Sodium Chloride (Saline Flush) 10 ml FLUSH ASDIRECTED PRN PRN Reason: Keep Vein Open Tamsulosin HCl (Flomax) 0.4 mg PO DAILY [facility] Last Admin: 05/20/17 07:26 Dose: 0.4 mg Temazepam (Restoril) 15 mg PO BEDTIME PRN PRN Reason: Sleep Discontinued Medications Enoxaparin Sodium (Lovenox) 40 mg SUBCUT Q24H [facility] Last Admin: 05/17/17 13:00 Dose: 40 mg Furosemide (Lasix) 40 mg IVPUSH Q24H [facility] Last Admin: 05/18/17 08:08 Dose: 40 mg Furosemide (Lasix) 40 mg IVPUSH BID [facility] Insulin Detemir (Levemir) Confirm Administered Dose 300 unit .ROUTE .STK-MED ONE Stop: 05/17/17 17:25 Last Admin: 05/17/17 17:19 Dose: Not Given - Exam Quality Assessment: Supplemental Oxygen General: Alert, Oriented HEENT: Mucous Membr. Moist/[place] Neck: Supple Lungs: Clear to Auscultation, Decreased Breath Sounds Cardiovascular: Irregular Rhythm GI/Abdominal Exam: Normal Bowel Sounds, Soft, Non-Tender Extremities: Normal Inspection, Pedal Edema (3+) Neurological: No New Focal Deficit Psy/Mental Status: Alert, Normal Affect - Problem List & Annotations (1) Anasarca SNOMED Code(s): 415899137, 472178832 Code(s): R60.1 - GENERALIZED EDEMA Status: Acute Priority: High Current Visit: Yes (2) CHF exacerbation SNOMED Code(s): 69475638 Code(s): I50.9 - HEART FAILURE, UNSPECIFIED Status: Acute Priority: High Current Visit: No Qualifiers: Congestive heart failure type: systolic Qualified Code(s): I50.23 - Acute on chronic systolic (congestive) heart failure - Problem List Review Problem List Initiated/Reviewed/Updated: Yes - My Orders Last 24 Hours: My Active Orders 05/20/17 09:11 Echo Comp wo Cont [US] Routine 05/20/17 13:15 Potassium Chloride [Klor-Con 10] 20 meq PO BIDMEALS 05/21/17 05:11 BMP [BASIC METABOLIC PANEL,BMP] [CHEM] DAILY - Assessment Assessment:: Anasarca Acute on chronic systolic CHF - Plan Plan:: Labs ordered. Echocardiogram ordered. CXR. IV Lasix with metolazone prior. Will have PT evaluate for legs/weeping. 05-18-2017 Patient states feeling somewhat less short of breath today. Is up to bathroom unassisted and tolerates well. Sats remain about 92% on room air. Continues to have 4+ edema in lower extremities. UNNA boots intact. Lung sounds note to have better air movement and less wheezing but still diminished. He is down 4# today. States did have good diuresis after the Lasix yesterday but slowed down within hours after. CT scan was done yesterday afternoon of chest and showed pleural effusions, no lesions. Awaiting echocardiogram. New onset atrial fib noted by EKG so Xarelto started yesterday. Will adjust Xarelto dose due to renal function to 15 mg. Creatinine stable at 1.9. Will increase Lasix to BID this weekend. Continue monitoring blood sugars, blood pressures and weights. Reevalute in am. 05-19-2017 Patient is feeling better. Admits that breathing is easier today. Down 9# since admission. Patient states abdomen is down and legs less taut. Blood pressure is better. BMP is stable, creatinine remains 1.9. Will continue with IV Lasix. Xarelto for atrial fib. Keep legs elevated. Monitor weights and output. Possible swing bed in am. 05-20-2017 Patient feels better this am. Is ambulating now and tolerating without shortness of breath. Feels abdomen is less. Is down 13# from admit. Lung sounds diminished but clear. Blood pressure mildly elevated yet. Creatinine stable at 2.0. Will continue with IV Lasix and metalozone. Keep ambulating. Awaiting echo today. Transfer to swing bed tomorrow.
[2017-05-20] MEDS: Potassium Chloride 10 MEQ Tab.ER PO SCH ×2 (13:52→17:14)
[2017-05-20] MEDS: RIVAROXABAN 15 MG PO SCH (17:15)
[2017-05-20] MEDS: Simvastatin 40 MG Tab PO SCH (19:27)
[2017-05-21 07:44] VITALS: BP 159/89
[2017-05-21] MEDS: Furosemide 40 MG/4 ML VIAL IVPUSH SCH (07:50)
[2017-05-21] MEDS: Tamsulosin 0.4 MG Cap.ER PO SCH (07:50)
[2017-05-21] MEDS: Losartan 100 MG Tab PO SCH (07:51)
[2017-05-21] MEDS: Isosorbide Mononitrate 30 MG Tab.ER PO SCH (07:51)
[2017-05-21] MEDS: Potassium Chloride 10 MEQ Tab.ER PO SCH (07:51)
[2017-05-21] MEDS: Aspirin 81 MG Tab.EC PO SCH (07:51)
[2017-05-21] MEDS: Meloxicam 7.5 MG Tab PO SCH (07:51)
[2017-05-21] MEDS: Multivitamin Tab PO SCH (07:52)
[2017-05-21] MEDS: Polyethylene Glycol 3350 Powder 17 GM Packet PO SCH (07:52)
[2017-05-21] MEDS: Carvedilol 3.125 MG Tab PO SCH (07:52)
[2017-05-21] MEDS: hydrALAZINE 25 MG Tab PO SCH (07:52)
[2017-05-21] MEDS: Insulin Detemir 100 Units/ML 3 ML Pen SUBCUT SCH (08:05)
--- NOTE | 2017-05-21 17:28 | PCM.DCSUM1 ---
Discharge Summary - Hospital Course Free Text/Narrative:: Patient admitted to acute care after suggestion by Dr. Meyers for diuresis. Had steadily increasing edema in his legs and now up to his abdomen. Was feeling more short of breath. Had multiple medication changes for blood pressure and edema over the last several months. He was recently on torsemide and didn't see much results. Patient's legs are now 4+, taut and are weeping. Suggested we admit him for IV Lasix and metalozone. Labs and EKG ordered. Echocardiogram to be obtained. - Discharge Data Discharge Date: 05/21/17 Discharge Disposition: DC/Tfer W/I Hosp To Swing 61 Condition: Good - Discharge Diagnosis/Problem(s) (1) Anasarca SNOMED Code(s): 098880313, 483861521 ICD Code: R60.1 - GENERALIZED EDEMA Status: Acute Priority: High (2) CHF exacerbation SNOMED Code(s): 70821702 ICD Code: I50.9 - HEART FAILURE, UNSPECIFIED Status: Acute Priority: High Qualifiers: Congestive heart failure type: systolic Qualified Code(s): I50.23 - Acute on chronic systolic (congestive) heart failure - Patient Summary/Data Complications: none Consults: Consultations 05/17/17 08:42 Consult to Physical Therapy [PT Evaluation and Treatment] [CONS] Routine Hospital Course: Patient admitted for CHF, peripheral edema, anasarca. He was started on IV Lasix 40 mg daily with metolazone 3x per week. He did not feel after a day of that he was diuresing any more than usual, had lost 4#. Creatinine remained stable on day 2 so was Lasix 40 mg was increased to BID. Has lost 16# of of today. EKG did show a new onset atrial fib so was started on Xarelto at 15 mg per renal dosing. Has had good reduction in edema, breathing much easier now. Is ambulating in the halls now on his own. Does feel he tolerates activity well now. UNNA boots placed per PT due to fluid weeping. Will transfer him to swing bed for ongoing IV Lasix, UNNA boots with PT and see how he progresses over the next few days. - Discharge Plan Home Medications: Home Meds Aspirin [Halfprin] 81 mg PO DAILY 05/18/15 [History] Cyclobenzaprine [Flexeril] 10 mg PO TID PRN 05/18/15 [History] Insulin Isophane NPH, Human [HumuLIN N] 45 unit SUBCUT BIDMEALS 05/18/15 [ History] Meloxicam 15 mg PO WITHBREAKFAST 05/18/15 [History] Multivitamin [Tab A Shantell] 1 each PO DAILY 05/18/15 [History] Polyethylene Glycol 3350 [MiraLAX] 17 gm PO DAILY 05/18/15 [History] Rosuvastatin [Crestor] 20 mg PO DAILY 05/18/15 [History] Tamsulosin [Flomax] 0.4 mg PO DAILY 05/18/15 [History] Carvedilol [Coreg] 3.125 mg PO BIDM #60 tablet 05/21/15 [Rx] Isosorbide Mononitrate [Imdur] 60 mg PO DAILY 05/17/17 [History] Losartan Potassium 100 mg PO DAILY 05/17/17 [History] Torsemide 40 mg PO BID 05/17/17 [History] hydrALAZINE HCl [Hydralazine HCl] 25 mg PO BID 05/17/17 [History] - Discharge Summary/Plan Comment DC Time >30 min.: Yes Discharge Summary/Plan Comment: Transfer to swing bed for ongoing IV Lasix and PT. - General Info Date of Service: 05/21/17 Admission Dx/Problem (Free Text: Admission Diagnosis/Problem Admission Diagnosis/Problem Anasarca associated with disorder of kidney Functional Status: Reports: Pain Controlled, Tolerating Diet, Ambulating - Review of Systems General: Denies: Fever, Weakness, Fatigue HEENT: Reports: No Symptoms Pulmonary: Reports: Shortness of Breath. Denies: Cough, Wheezing Cardiovascular: Reports: Edema. Denies: Chest Pain, Lightheadedness Gastrointestinal: Denies: Abdominal Pain, Decreased Appetite, Nausea, Vomiting Genitourinary: Reports: No Symptoms Musculoskeletal: Reports: No Symptoms Skin: Reports: Other (lower extremities intact UNNA boots) - Patient Data Vitals - Most Recent: Last Vital Signs Temp 97.5 F 05/21/17 07:41 Pulse 75 05/21/17 07:52 Resp 16 05/21/17 07:41 BP 159/89 H 05/21/17 07:52 Pulse Ox 95 05/21/17 07:41 Weight - Most Recent: 299 lb 6.4 oz I&O - Last 24 hours: Intake & Output 05/21/17 05/21/17 05/21/17 06:59 14:59 22:59 Intake Total 500 365 Output Total 1250 750 Balance -750 -385 Lab Results - Last 24 hrs: Laboratory Results - last 24 hr 05/20/17 05/20/17 05/21/17 Range/Units 17: 20:42 06:45 Sodium 143 (136-145) mEq/L Potassium 3.4 L (3.5-5.0) mEq/L Chloride 103 (98-106) mEq/L Carbon Dioxide 34 H (21-32) mmol/L BUN 37 H (7-18) mg/dL Creatinine 2.0 H (0.7-1.3) mg/dL Est Cr Clr Drug Dosing 37.13 mL/min Estimated GFR (MDRD) 33 L (>=60) mL/min Glucose 69 L (75-99) mg/dL POC Glucose 196 H 235 H (75-105) mg/dl Calcium 9.1 (8.4-10.1) mg/dL Magnesium 1.9 (1.8-2.4) mg/dL 05/21/17 Range/Units 07:39 Sodium (136-145) mEq/L Potassium (3.5-5.0) mEq/L Chloride (98-106) mEq/L Carbon Dioxide (21-32) mmol/L BUN (7-18) mg/dL Creatinine (0.7-1.3) mg/dL Est Cr Clr Drug Dosing mL/min Estimated GFR (MDRD) (>=60) mL/min Glucose (75-99) mg/dL POC Glucose 66 L (75-105) mg/dl Calcium (8.4-10.1) mg/dL Magnesium (1.8-2.4) mg/dL Med Orders - Current: Current Medications Discontinued Medications Acetaminophen (Tylenol) 650 mg PO Q4H PRN PRN Reason: Pain (Mild 1-3)/fever Aspirin (Halfprin) 81 mg PO DAILY [facility] Last Admin: 05/21/17 07:51 Dose: 81 mg Carvedilol (Coreg) 3.125 mg PO BIDM [facility] Last Admin: 05/21/17 07:52 Dose: 3.125 mg Cyclobenzaprine HCl (Flexeril) 10 mg PO TID PRN PRN Reason: Spasms Enoxaparin Sodium (Lovenox) 40 mg SUBCUT Q24H [facility] Last Admin: 05/17/17 13:00 Dose: 40 mg Furosemide (Lasix) 40 mg IVPUSH Q24H [facility] Last Admin: 05/18/17 08:08 Dose: 40 mg Furosemide (Lasix) 40 mg IVPUSH BID [facility] Furosemide (Lasix) 40 mg IVPUSH DAILY@0800,1400 [facility] Last Admin: 05/21/17 07:50 Dose: 40 mg Hydralazine HCl (Apresoline) 25 mg PO BID [facility] Last Admin: 05/21/17 07:52 Dose: 25 mg Insulin Detemir (Levemir) 45 unit SUBCUT BID [facility] Last Admin: 05/21/17 08:05 Dose: 45 units Insulin Detemir (Levemir) Confirm Administered Dose 300 unit .ROUTE .STK-MED ONE Stop: 05/17/17 17:25 Last Admin: 05/17/17 17:19 Dose: Not Given Isosorbide Mononitrate (Imdur) 60 mg PO DAILY [facility] Last Admin: 05/21/17 07:51 Dose: 60 mg Losartan Potassium (Cozaar) 100 mg PO DAILY [facility] Last Admin: 05/21/17 07:51 Dose: 100 mg Magnesium Hydroxide (Milk Of Magnesia) 30 ml PO Q12H PRN PRN Reason: Constipation Meloxicam (Mobic) 15 mg PO WITHBREAKFAST [facility] Last Admin: 05/21/17 07:51 Dose: 15 mg Metolazone (Zaroxolyn) 5 mg PO MOWEFR [facility] Last Admin: 05/20/17 08:02 Dose: 5 mg Multivitamins/Minerals/Vitamin C (Tab-A-Shantell) 1 tab PO DAILY [facility] Last Admin: 05/21/17 07:52 Dose: 1 tab Rivaroxaban (Xarelto () 15mgOwn Med) 1 each PO DAILY@1800 [facility] Last Admin: 05/20/17 17:15 Dose: 1 each Ondansetron HCl (Zofran Odt) 4 mg PO Q4H PRN PRN Reason: nausea, able to take PO Polyethylene Glycol (Miralax) 17 gm PO DAILY [facility] Last Admin: 05/21/17 07:52 Dose: Not Given Potassium Chloride (Klor-Con 10) 20 meq PO BIDMEALS [facility] Last Admin: 05/21/17 07:51 Dose: 20 meq Simvastatin (Zocor) 80 mg PO BEDTIME [facility] Last Admin: 05/20/17 19:27 Dose: 80 mg Sodium Chloride (Saline Flush) 10 ml FLUSH ASDIRECTED PRN PRN Reason: Keep Vein Open Tamsulosin HCl (Flomax) 0.4 mg PO DAILY [facility] Last Admin: 05/21/17 07:50 Dose: 0.4 mg Temazepam (Restoril) 15 mg PO BEDTIME PRN PRN Reason: Sleep - Exam General: Reports: Alert, Oriented HEENT: Reports: Mucous Membr. Moist/[place] Neck: Reports: Supple Lungs: Reports: Clear to Auscultation, Normal Respiratory Effort Cardiovascular: Reports: Irregular Rhythm GI/Abdominal Exam: Normal Bowel Sounds, Soft, Non-Tender Extremities: Pedal Edema, Other (UNNA boots were removed to be changed. Lower extremities are dusky, small open areas noted. Edema is improved. No warmth noted.) Wound/Incisions: Reports: Erythema Improving Psy/Mental Status: Reports: Alert, Normal Affect, Normal Mood *Q Meaningful Use (DIS) - VTE *Q VTE Criteria *Q: - Stroke *Q Stroke Criteria *Q: - AMI *Q AMI Criteria *Q:
== END 2017-05-21 09:10 | disposition swing bed (61) | DRG 293 ==
LOC: CC.MS 07:52 → UNDOADMIN 07:52 → CC.MS 08:21
PROVIDERS: ADMIT Family Medicine; ATTEND Family Medicine
DX: I11.0 Hypertensive heart disease with heart failure (principal); I50.23 Acute on chronic systolic (congestive) heart failure; R60.1 Generalized edema; I48.91 Unspecified atrial fibrillation; E78.00 Pure hypercholesterolemia, unspecified; J30.9 Allergic rhinitis, unspecified; N40.0 Benign prostatic hyperplasia without lower urinary tract symptoms; G89.29 Other chronic pain; M54.9 Dorsalgia, unspecified; E11.40 Type 2 diabetes mellitus with diabetic neuropathy, unspecified; Z79.4 Long term (current) use of insulin; Z79.82 Long term (current) use of aspirin; Z79.899 Other long term (current) drug therapy; Z87.891 Personal history of nicotine dependence
CPT/HCPCS: 29580-GP; 36415; 71020; 71250; 80048; 80053; 82962; 83735; 83880; 85025; 93005; 93306; 94761; 97110-GP; 97161-GP; A9270-GY; J1650; J1815-GY; J1940

== ENCOUNTER 2017-05-21 09:10 | Inpatient (IN) | payer MEDICARE, BC ==
[2017-05-21] MEDS ORDERED: Temazepam 15 MG Cap PO PRN (12:13)
[2017-05-21] MEDS ORDERED: Cyclobenzaprine 10 MG Tab PO PRN (12:13)
[2017-05-21] MEDS ORDERED: Magnesium Hydroxide 400 MG/5 ML Susp 30 ML Cup PO PRN (12:13)
[2017-05-21] MEDS ORDERED: Ondansetron 4 MG Tab.DIS PO PRN (12:13)
[2017-05-21] MEDS ORDERED: Sodium Chloride 0.9% 10 ML Syringe FLUSH PRN ×2 (12:13)
[2017-05-21] MEDS ORDERED: Acetaminophen 325 MG Tab PO PRN (12:13)
[2017-05-21] MEDS: Furosemide 40 MG/4 ML VIAL IVPUSH SCH (15:56)
[2017-05-21] MEDS: Carvedilol 3.125 MG Tab PO SCH (20:14)
[2017-05-21] MEDS: Potassium Chloride 10 MEQ Tab.ER PO SCH (20:15)
[2017-05-21] MEDS: hydrALAZINE 25 MG Tab PO SCH (20:16)
[2017-05-21] MEDS: Simvastatin 40 MG Tab PO SCH (20:16)
[2017-05-21] MEDS: XARELTO 15 MG PO SCH (20:17)
[2017-05-21] MEDS: Insulin Detemir 100 Units/ML 3 ML Pen SUBCUT SCH (20:23)
[2017-05-22] MEDS: Metolazone 5 MG Tab PO SCH (06:45)
[2017-05-22] MEDS: Isosorbide Mononitrate 30 MG Tab.ER PO SCH (07:40)
[2017-05-22] MEDS: Furosemide 40 MG/4 ML VIAL IVPUSH SCH ×2 (07:40→15:17)
[2017-05-22] MEDS: Tamsulosin 0.4 MG Cap.ER PO SCH (07:41)
[2017-05-22] MEDS: hydrALAZINE 25 MG Tab PO SCH ×2 (07:41→19:54)
[2017-05-22] MEDS: Meloxicam 7.5 MG Tab PO SCH (07:41)
[2017-05-22] MEDS: Multivitamin Tab PO SCH (07:41)
[2017-05-22] MEDS: Aspirin 81 MG Tab.EC PO SCH (07:42)
[2017-05-22] MEDS: Losartan 100 MG Tab PO SCH (07:42)
[2017-05-22] MEDS: Carvedilol 3.125 MG Tab PO SCH ×2 (07:42→18:30)
[2017-05-22] MEDS: Potassium Chloride 10 MEQ Tab.ER PO SCH ×2 (07:42→18:30)
[2017-05-22] MEDS: Polyethylene Glycol 3350 Powder 17 GM Packet PO SCH (07:43)
[2017-05-22] MEDS: Insulin Detemir 100 Units/ML 3 ML Pen SUBCUT SCH ×2 (08:38→19:55)
[2017-05-22] MEDS: XARELTO 15 MG PO SCH (18:31)
[2017-05-22] MEDS: Simvastatin 40 MG Tab PO SCH (19:54)
[2017-05-23] MEDS: Polyethylene Glycol 3350 Powder 17 GM Packet PO SCH (08:20)
[2017-05-23] MEDS: hydrALAZINE 25 MG Tab PO SCH ×2 (08:21→20:44)
[2017-05-23] MEDS: Carvedilol 3.125 MG Tab PO SCH ×2 (08:21→17:07)
[2017-05-23] MEDS: Aspirin 81 MG Tab.EC PO SCH (08:22)
[2017-05-23] MEDS: Losartan 100 MG Tab PO SCH (08:22)
[2017-05-23] MEDS: Tamsulosin 0.4 MG Cap.ER PO SCH (08:22)
[2017-05-23] MEDS: Isosorbide Mononitrate 30 MG Tab.ER PO SCH (08:22)
[2017-05-23] MEDS: Meloxicam 7.5 MG Tab PO SCH (08:23)
[2017-05-23] MEDS: Potassium Chloride 10 MEQ Tab.ER PO SCH ×2 (08:23→17:06)
[2017-05-23] MEDS: Multivitamin Tab PO SCH (08:23)
[2017-05-23] MEDS: Insulin Detemir 100 Units/ML 3 ML Pen SUBCUT SCH (08:25)
[2017-05-23] MEDS: Furosemide 40 MG/4 ML VIAL IVPUSH SCH ×2 (08:28→14:18)
[2017-05-23] MEDS: XARELTO 15 MG PO SCH (17:06)
[2017-05-23] MEDS ORDERED: Insulin Detemir 100 Units/ML 3 ML Pen SUBCUT SCH (20:00)
[2017-05-23] MEDS: Simvastatin 40 MG Tab PO SCH (20:43)
[2017-05-24] MEDS: Metolazone 5 MG Tab PO SCH (06:56)
[2017-05-24] MEDS: Furosemide 40 MG/4 ML VIAL IVPUSH SCH (07:38)
[2017-05-24] MEDS: Tamsulosin 0.4 MG Cap.ER PO SCH (07:39)
[2017-05-24] MEDS: Aspirin 81 MG Tab.EC PO SCH (07:42)
[2017-05-24] MEDS: Isosorbide Mononitrate 30 MG Tab.ER PO SCH (07:42)
[2017-05-24] MEDS: Multivitamin Tab PO SCH (07:43)
[2017-05-24] MEDS: hydrALAZINE 25 MG Tab PO SCH (07:43)
[2017-05-24] MEDS: Potassium Chloride 10 MEQ Tab.ER PO SCH (07:43)
[2017-05-24] MEDS: Meloxicam 7.5 MG Tab PO SCH (07:44)
[2017-05-24] MEDS: Carvedilol 3.125 MG Tab PO SCH (07:44)
[2017-05-24] MEDS: Losartan 100 MG Tab PO SCH (07:44)
[2017-05-24 07:48] VITALS: BP 147/86
[2017-05-24] MEDS: Polyethylene Glycol 3350 Powder 17 GM Packet PO SCH (07:48)
[2017-05-24] MEDS ORDERED: Insulin Detemir 100 Units/ML 3 ML Pen SUBCUT SCH (08:00)
--- NOTE | 2017-05-24 09:35 | PCM.DCSUM1 ---
Discharge Summary - Hospital Course Free Text/Narrative:: Patient admitted acute care for IV diuresis due to Anasarca, CHF. Had a steady increase in edema over a course of a few months to the point of having 4+ edema , taut skin and open areas on his legs that were weeping. He had tried higher doses of Lasix and was switched to Torsemide without much improvement. He had seen Dr. Meyers and suggested admission to [facility] with IV Lasix and Metolazone. Creatinine noted at 2.0. Started on Xarelto for atrial fib. During acute admission, patient was down 15#. Potassium did drop due to Lasix so oral potassium was started. Transferred to swing bed for ongoing diuresis. - Discharge Data Discharge Date: 05/24/17 Discharge Disposition: Home, Self-Care 01 Condition: Good - Patient Summary/Data Consults: Consultations 05/21/17 12:13 Consult to Physical Therapy [PT Evaluation and Treatment] [CONS] Routine Recommended Follow-up Testing/Procedures: none Hospital Course: Patient has had good improvement of his edema. Weight is down 35#. Creatinine is stable at 2.0. Is ambulating well and tolerating with minimal shortness of breath. Unna boots still on PT but legs are much improved. Color does remain frank but chronic in nature. Blood pressure mildly elevated but is much improved with comparison to past. Blood sugars have been running lower in the am so his nighttime insulin dose was decreased. Will discharge home with reduction of evening dose of Humulin N to 35 units. Continue Xarelto, potassium , lasix and metolazone. Stop Meloxicam and use pain meds as needed due to renal insufficiency. - Patient Instructions Diet: Low Sodium Activity: As Tolerated - Discharge Plan Prescriptions/Med Rec: Furosemide 40 mg PO BID #60 tablet Hydrocodone/Acetaminophen [Hydrocodon-Acetaminophen 5-325] 1 - 2 each PO Q6H # 60 tablet Insulin NPH Human Isophane [Humulin N] 35 unit SQ ACDINNER #1 cartridge Metolazone 5 mg PO MOWEFR #90 tablet Non-Formulary Medication [NF Drug] 1 each PO DAILY@1800 #30 each Nph, Human Insulin Isophane [HumuLIN N] 45 unit SUBCUT ACBREAKFAST #1 pen Potassium Chloride [Klor-Con 10] 20 meq PO BIDMEALS #60 tab.er Home Medications: Home Meds Aspirin [Halfprin] 81 mg PO DAILY 05/18/15 [History] Cyclobenzaprine [Flexeril] 10 mg PO TID PRN 05/18/15 [History] Multivitamin [Tab A Shantell] 1 each PO DAILY 05/18/15 [History] Polyethylene Glycol 3350 [MiraLAX] 17 gm PO DAILY 05/18/15 [History] Rosuvastatin [Crestor] 20 mg PO DAILY 05/18/15 [History] Tamsulosin [Flomax] 0.4 mg PO DAILY 05/18/15 [History] Carvedilol [Coreg] 3.125 mg PO BIDM #60 tablet 05/21/15 [Rx] Isosorbide Mononitrate [Imdur] 60 mg PO DAILY 05/17/17 [History] Losartan Potassium 100 mg PO DAILY 05/17/17 [History] hydrALAZINE HCl [Hydralazine HCl] 25 mg PO BID 05/17/17 [History] Furosemide 40 mg PO BID #60 tablet 05/24/17 [Rx] Hydrocodone/Acetaminophen [Hydrocodon-Acetaminophen 5-325] 1 - 2 each PO Q6H # 60 tablet 05/24/17 [Rx] Insulin NPH Human Isophane [Humulin N] 35 unit SQ ACDINNER #1 cartridge [Rx] Metolazone 5 mg PO MOWEFR #90 tablet 05/24/17 [Rx] Non-Formulary Medication [NF Drug] 1 each PO DAILY@1800 #30 each 05/24/17 [Rx] Nph, Human Insulin Isophane [HumuLIN N] 45 unit SUBCUT ACBREAKFAST #1 pen [Rx] Potassium Chloride [Klor-Con 10] 20 meq PO BIDMEALS #60 tab.er 05/24/17 [Rx] Referrals: Linda Figueredo PA [ED Midlevel Provider] - (Follow up with Brittany in 10 days, panel 8 prior to appointment) Parmjit Meyers MD [Ordering Only Provider] - (Dr. Meyers in [place] on June 13 at 220 pm. ) - Discharge Summary/Plan Comment DC Time >30 min.: No Discharge Summary/Plan Comment: Discharge home. Will continue Lasix 40 mg BID with metolazone 3x per week. Advised on administration of this. Continue Xarelto for new onset atrial fib. Stop Meloxicam. [place] for pain. Continue potassium. Continue to elevate legs , reduce salt. Decrease Humulin N to 35 units from his usual 45 at bedtime. Recheck in clinic with myself in 10 days with labs prior. See Dr. Meyers on June 13. - General Info Date of Service: 05/24/17 Admission Dx/Problem (Free Text: Acute on chronic systolic heart failure Anasarca Functional Status: Reports: Pain Controlled, Tolerating Diet, Ambulating - Review of Systems General: Denies: Fever, Weakness, Fatigue HEENT: Reports: No Symptoms Pulmonary: Denies: Shortness of Breath, Cough, Wheezing Cardiovascular: Reports: Edema. Denies: Chest Pain, Lightheadedness Gastrointestinal: Denies: Abdominal Pain, Nausea, Vomiting Genitourinary: Reports: No Symptoms Musculoskeletal: Reports: No Symptoms Skin: Reports: Other (Unna boots intact) Neurological: Reports: No Symptoms Psychiatric: Reports: No Symptoms - Patient Data Vitals - Most Recent: Last Vital Signs Temp 96.4 F 05/24/17 08:00 Pulse 66 05/24/17 08:00 Resp 16 05/24/17 08:00 BP 147/86 H 05/24/17 08:00 Pulse Ox 94 L 05/24/17 08:00 Weight - Most Recent: 285 lb 12.8 oz I&O - Last 24 hours: Intake & Output 05/23/17 05/24/17 05/24/17 22:59 06:59 14:59 Intake Total 500 Balance 500 Lab Results - Last 24 hrs: Laboratory Results - last 24 hr 05/23/17 05/23/17 05/23/17 Range/Units 11:44 17:10 20:43 POC Glucose 150 H 253 H 277 H (75-105) mg/dl 05/24/17 Range/Units 07:39 POC Glucose 53 L (75-105) mg/dl Med Orders - Current: Current Medications Acetaminophen (Tylenol) 650 mg PO Q4H PRN PRN Reason: Pain (Mild 1-3)/fever Aspirin (Halfprin) 81 mg PO DAILY [facility] Last Admin: 05/24/17 07:42 Dose: 81 mg Carvedilol (Coreg) 3.125 mg PO BIDM [facility] Last Admin: 09/15/17 07:44 Dose: 3.125 mg Cyclobenzaprine HCl (Flexeril) 10 mg PO TID PRN PRN Reason: Spasms Furosemide (Lasix) 40 mg IVPUSH DAILY@0800,1400 [facility] Last Admin: 05/24/17 07:38 Dose: 40 mg Hydralazine HCl (Apresoline) 25 mg PO BID [facility] Last Admin: 05/24/17 07:43 Dose: 25 mg Insulin Detemir (Levemir) 45 unit SUBCUT DAILY [facility] Last Admin: 05/24/17 07:49 Dose: 45 units Insulin Detemir (Levemir) 40 unit SUBCUT BEDTIME [facility] Last Admin: 05/23/17 20:44 Dose: 40 unit Isosorbide Mononitrate (Imdur) 60 mg PO DAILY [facility] Last Admin: 05/24/17 07:42 Dose: 60 mg Losartan Potassium (Cozaar) 100 mg PO DAILY [facility] Last Admin: 05/24/17 07:44 Dose: 100 mg Magnesium Hydroxide (Milk Of Magnesia) 30 ml PO Q12H PRN PRN Reason: Constipation Meloxicam (Mobic) 15 mg PO WITHBREAKFAST [facility] Last Admin: 05/24/17 07:44 Dose: 15 mg Metolazone (Zaroxolyn) 5 mg PO MOWEFR [facility] Last Admin: 05/24/17 06:56 Dose: 5 mg Multivitamins/Minerals/Vitamin C (Tab-A-Shantell) 1 tab PO DAILY [facility] Last Admin: 05/24/17 07:43 Dose: 1 tab Xarelto 15mg 1 each PO DAILY@1800 [facility] Last Admin: 05/23/17 17:06 Dose: 1 each Ondansetron HCl (Zofran Odt) 4 mg PO Q4H PRN PRN Reason: nausea, able to take PO Polyethylene Glycol (Miralax) 17 gm PO DAILY [facility] Last Admin: 05/24/17 07:48 Dose: Not Given Potassium Chloride (Klor-Con 10) 20 meq PO BIDMEALS [facility] Last Admin: 05/24/17 07:43 Dose: 20 meq Simvastatin (Zocor) 80 mg PO BEDTIME [facility] Last Admin: 05/23/17 20:43 Dose: 80 mg Sodium Chloride (Saline Flush) 10 ml FLUSH ASDIRECTED PRN PRN Reason: Keep Vein Open Tamsulosin HCl (Flomax) 0.4 mg PO DAILY [facility] Last Admin: 05/24/17 07:39 Dose: 0.4 mg Temazepam (Restoril) 15 mg PO BEDTIME PRN PRN Reason: Sleep Discontinued Medications Insulin Detemir (Levemir) 45 unit SUBCUT BID [facility] Last Admin: 05/23/17 08:25 Dose: 45 unit - Exam General: Reports: Alert, Oriented HEENT: Reports: Mucous Membr. Moist/[place] Neck: Reports: Supple Lungs: Reports: Clear to Auscultation, Normal Respiratory Effort Cardiovascular: Reports: Irregular Rhythm GI/Abdominal Exam: Normal Bowel Sounds, Soft, Non-Tender Extremities: Other (venous stasis changes to LE; unna boots intact; toes frank in color) Wound/Incisions: Reports: Erythema Improving Neurological: Reports: No New Focal Deficit Psy/Mental Status: Reports: Alert, Normal Affect, Normal Mood *Q Meaningful Use (DIS) - VTE *Q VTE Criteria *Q: - Stroke *Q Stroke Criteria *Q: - AMI *Q AMI Criteria *Q:
== END 2017-05-24 11:25 | disposition home or self-care (01) | DRG 293 ==
LOC: UNDOADMIN 09:10 → CC.MS 09:10
PROVIDERS: ADMIT Family Medicine; ATTEND Family Medicine
DX: I11.0 Hypertensive heart disease with heart failure (principal); R06.01 Orthopnea; I50.23 Acute on chronic systolic (congestive) heart failure; E78.00 Pure hypercholesterolemia, unspecified; J30.9 Allergic rhinitis, unspecified; N40.0 Benign prostatic hyperplasia without lower urinary tract symptoms; E11.40 Type 2 diabetes mellitus with diabetic neuropathy, unspecified; Z79.4 Long term (current) use of insulin; G89.29 Other chronic pain; M54.9 Dorsalgia, unspecified; Z87.891 Personal history of nicotine dependence; Z79.82 Long term (current) use of aspirin; Z79.899 Other long term (current) drug therapy
CPT/HCPCS: 29580-GP; 82962; A9270-GY; J1815-GY; J1940